=== PATIENT | male | born 1955 | race Caucasian/White ===

== ENCOUNTER 2021-09-03 15:30 | Outpatient (CLI) | payer MEDICARE, OTHER ==
[2021-09-03 17:43] LABS: Hemoglobin 15.3 g/dL (13.5-17.5); Mean Corpuscular HGB CONC 34.9 g/dL (32.0-36.0); Mean Corpuscular Hemoglobin 30.6 pg (27.0-33.0); Mean Corpuscular Volume 87.8 fl (81.2-95.1); Mean Platelet Volume 10.6 fl (7.4-10.4); Platelet Count 154 10x3/uL (150-450); RBC Distribution Width 12.5 % (11.5-14.5); White Blood Cell (WBC) Count 6.4 10x3/uL (3.5-10.5)
[2021-09-03 17:46] LABS: PTT 27.9 sec (22.0-33.0); Prothrombin Time 11.4 sec (9.5-12.1)
[2021-09-03 17:47] LABS: Anion Gap 10 mmol/L (10-20); BUN (Urea Nitrogen) 22 mg/dL (8.4-25.7); Calc. Creatinine Clearance 0 mL/min (70-130); Calcium 8.8 mg/dL (7.8-10.44); Carbon Dioxide 28 mmol/L (23-31); Chloride 105 mmol/L (98-107); Glucose 85 mg/dL (80-115); Sodium 139 mmol/L (136-145)
[2021-09-04 18:37] LABS: SARS-CoV-2 PCR by NAA Not Detected (NotDetected)
== END 2021-09-03 15:31 | disposition home or self-care (01) ==
LOC: LABBT 15:30
PROVIDERS: ATTEND Surgery
DX: Z01.818 Encounter for other preprocedural examination (principal); M48.062 Spinal stenosis, lumbar region with neurogenic claudication; M51.26 Other intervertebral disc displacement, lumbar region; Z20.822 Contact with and (suspected) exposure to COVID-19
CPT/HCPCS: 80048; 85027; 85610; 85730; U0003; U0005; 93005; 93010

== ENCOUNTER 2021-09-06 06:00 | Observation (INO) | payer MEDICARE, OTHER ==
[2021-09-03 10:05] VITALS: BMI 29.7
[2021-09-06] MEDS ORDERED: Levofloxacin 500 mg/D5W 100 ml Premix Bag ONE (06:34)
[2021-09-06] MEDS ORDERED: Fentanyl 250 MCG/5 ML VIAL ONE (06:35)
[2021-09-06] MEDS ORDERED: Thrombin 5000 UNITS/5 ML VIAL ONE (07:05)
[2021-09-06] MEDS ORDERED: Clindamycin/D5W 900 mg/50 ml Premix Bag ONE (07:20)
[2021-09-06] MEDS ORDERED: Lidocaine 2% Jelly 5 ML TUBE ONE (07:26)
[2021-09-06] MEDS ORDERED: PROPOFOL 200 MG/20 ML VIAL ONE (07:38)
[2021-09-06] MEDS ORDERED: ePHEDrine 50 MG/ML VIAL ONE (07:38)
[2021-09-06] MEDS ORDERED: Lidocaine 1% PF 5 ML VIAL ONE (07:38)
[2021-09-06] MEDS ORDERED: Ketorolac Tromethamine 30 MG/ML VIAL ONE (07:38)
[2021-09-06] MEDS ORDERED: Glycopyrrolate 0.2 MG/ML 5 ML SYRINGE ONE (07:38)
[2021-09-06] MEDS ORDERED: Ondansetron PF 4 MG/2 ML Vial ONE (07:38)
[2021-09-06] MEDS ORDERED: Dexamethasone 20 MG/5 ML VIAL ONE (07:38)
[2021-09-06] MEDS ORDERED: PHENYLEPHRINE-NS 100 MCG/ML 10 ML SYRINGE ONE (07:38)
[2021-09-06] MEDS ORDERED: Rocuronium Bromide 10 MG/ML (10ML VIAL) ONE (07:38)
[2021-09-06] MEDS ORDERED: ePHEDrine Sulfate 50 MG/10 ML VIAL ONE (08:06)
[2021-09-06] MEDS ORDERED: Acetaminophen 325 MG TAB PO PRN (08:09)
[2021-09-06] MEDS ORDERED: traMADol HCl 50 MG TAB PO PRN (08:09)
[2021-09-06] MEDS ORDERED: Acetaminophen/Codeine 30-300mg Tablet PO PRN (08:09)
[2021-09-06] MEDS ORDERED: hydrALAZINE 20 MG/ML VIAL SLOW IVP PRN (08:12)
[2021-09-06] MEDS ORDERED: tiZANidine HCl 4 MG TAB PO PRN (08:12)
[2021-09-06] MEDS ORDERED: Morphine 4 MG/ML VIAL SLOW IVP PRN (08:31)
[2021-09-06] MEDS ORDERED: Phenylephrine 10 MG/ML VIAL ONE (08:39)
[2021-09-06] MEDS ORDERED: Fentanyl 100 MCG/2 ML VIAL ONE ×2 (11:03→11:49)
[2021-09-06] MEDS ORDERED: Promethazine HCl 25 MG/ML VIAL IVPB PRN (11:05)
[2021-09-06] MEDS ORDERED: Promethazine HCl 25 MG/ML VIAL IM PRN (11:05)
[2021-09-06] MEDS ORDERED: Ondansetron HCl/PF 4 MG/2 ML Vial IVP PRN (11:05)
[2021-09-06] MEDS ORDERED: HYDROmorphone 2 MG/ML VIAL SLOW IVP PRN (11:05)
[2021-09-06] MEDS: Tamsulosin HCl 0.4 MG CAP PO SCH (13:08)
[2021-09-06] MEDS: Sodium Chloride 0.9% 1,000 ML IV SCH ×2 (13:08→22:36)
[2021-09-06] MEDS: HYDROcodone/Acetaminophen 7.5/325 mg Tablet PO PRN (13:09)
[2021-09-06] MEDS ORDERED: Clindamycin/D5W 900 MG in Premix Bag 1 BAG IVPB SCH (14:00)
[2021-09-06] MEDS: Clindamycin/D5W 900 MG in Premix Bag 1 BAG IVPB SCH (16:32)
[2021-09-06] MEDS ORDERED: Atorvastatin Calcium 20 MG TAB PO SCH (21:00)
[2021-09-07] MEDS: Clindamycin/D5W 900 MG in Premix Bag 1 BAG IVPB SCH (00:30)
[2021-09-07] MEDS: HYDROcodone/Acetaminophen 7.5/325 mg Tablet PO PRN ×2 (04:11→14:09)
[2021-09-07] MEDS: Tamsulosin HCl 0.4 MG CAP PO SCH (09:11)
[2021-09-07 12:02] VITALS: BP 112/64; TEMP 97.8
[2021-09-07] MEDS: Sodium Chloride 0.9% 1,000 ML IV SCH (13:58)
== END 2021-09-07 14:15 | disposition home or self-care (01) ==
LOC: SDC 06:00 → SURG B 12:24
PROVIDERS: ADMIT Surgery; ATTEND Surgery
PROC: 01NB0ZZ Release Lumbar Nerve, Open Approach (ICD-10-PCS; principal; 2021-09-06)
PROC: 0SB20ZZ Excision of Lumbar Vertebral Disc, Open Approach (ICD-10-PCS; 2021-09-06)
DX: M48.062 Spinal stenosis, lumbar region with neurogenic claudication (principal); M51.16 Intervertebral disc disorders with radiculopathy, lumbar region; I10 Essential (primary) hypertension; N40.0 Benign prostatic hyperplasia without lower urinary tract symptoms; J45.909 Unspecified asthma, uncomplicated; M19.90 Unspecified osteoarthritis, unspecified site; E78.5 Hyperlipidemia, unspecified; Z87.891 Personal history of nicotine dependence; Z79.1 Long term (current) use of non-steroidal anti-inflammatories (NSAID); Z79.899 Other long term (current) drug therapy; Z88.0 Allergy status to penicillin; Z88.2 Allergy status to sulfonamides
CPT/HCPCS: 63047; 63048; 63056; 76000; C1713; 96365; 96366; 96375; G0378; J1100; J1885; J1956; J2370; J2405; J2704; J3010; J3370; J3490; J7050

== ENCOUNTER 2021-12-18 10:46 | Outpatient (CLI) | payer MEDICARE, OTHER | END 2021-12-18 10:47 | disposition home or self-care (01) | LOC: TBSIIMAG 10:46 | PROVIDERS: ATTEND Surgery | DX: M48.062 Spinal stenosis, lumbar region with neurogenic claudication (principal); M47.816 Spondylosis without myelopathy or radiculopathy, lumbar region; Z98.890 Other specified postprocedural states | CPT/HCPCS: 72100; 72148 ==

== ENCOUNTER 2022-01-07 10:17 | Outpatient (CLI) | payer MEDICARE, OTHER | END 2022-01-07 10:18 | disposition home or self-care (01) | LOC: SCSCT 10:17 | PROVIDERS: ATTEND Surgery | DX: M51.16 Intervertebral disc disorders with radiculopathy, lumbar region (principal); M47.26 Other spondylosis with radiculopathy, lumbar region; Z98.890 Other specified postprocedural states | CPT/HCPCS: 72131 ==

== ENCOUNTER 2022-02-25 08:52 | Outpatient (CLI) | payer MEDICARE, OTHER | END 2022-02-25 08:53 | disposition home or self-care (01) | LOC: LABBT 08:52 | PROVIDERS: ATTEND Surgery | DX: Z01.818 Encounter for other preprocedural examination (principal); Z20.822 Contact with and (suspected) exposure to COVID-19 | CPT/HCPCS: 80048; 85027; 85610; 85730; 86850; 86900; 86901; 87811; 93005; 93010 ==

== ENCOUNTER 2022-02-28 07:29 | Inpatient (IN) | payer MEDICARE, OTHER ==
[2022-02-25 11:00] LABS: Hemoglobin 15.1 g/dL (13.5-17.5); Mean Corpuscular HGB CONC 34.7 g/dL (32.0-36.0); Mean Corpuscular Volume 86.3 fl (81.2-95.1); Mean Platelet Volume 10.8 fl (7.4-10.4); Platelet Count 158 10x3/uL (150-450); RBC Distribution Width 12.1 % (11.5-14.5); Red Blood Cell (RBC) Count 5.04 10x6/uL (4.32-5.72); White Blood Cell (WBC) Count 5.9 10x3/uL (3.5-10.5)
[2022-02-25 11:20] LABS: INR-International Normal Ratio 1.1; PTT 27.6 sec (22.0-33.0); Prothrombin Time 11.4 sec (9.5-12.1)
[2022-02-25 11:41] LABS: Anion Gap 11 mmol/L (10-20); BUN (Urea Nitrogen) 24 mg/dL (8.4-25.7); Calc. Creatinine Clearance 0 mL/min (70-130); Calcium 8.9 mg/dL (7.8-10.44); Carbon Dioxide 26 mmol/L (23-31); Chloride 106 mmol/L (98-107); Estimated GFR 95; Glucose 119 mg/dL (80-115); Potassium 3.9 mmol/L (3.5-5.1); Sodium 139 mmol/L (136-145)
[2022-02-28] MEDS ORDERED: Thrombin 5000 UNITS/5 ML VIAL ONE (08:16)
[2022-02-28] MEDS ORDERED: Levofloxacin 500 mg/D5W 100 ml Premix Bag ONE (08:43)
[2022-02-28] MEDS ORDERED: Clindamycin/D5W 900 mg/50 ml Premix Bag ONE (09:01)
[2022-02-28] MEDS ORDERED: fentaNYL Citrate/PF 100 MCG/2 ML SYRINGE ONE ×2 (09:13→12:39)
[2022-02-28] MEDS ORDERED: Midazolam HCl 2 mg/2 ml Vial ONE (09:14)
[2022-02-28] MEDS ORDERED: Ondansetron PF 4 MG/2 ML Vial ONE (09:22)
[2022-02-28] MEDS ORDERED: Dexamethasone 20 MG/5 ML VIAL ONE (09:22)
[2022-02-28] MEDS ORDERED: Vecuronium 10 MG VIAL ONE (09:22)
[2022-02-28] MEDS ORDERED: ePHEDrine 50 MG/ML VIAL ONE (09:22)
[2022-02-28] MEDS ORDERED: Phenylephrine 10 MG/ML VIAL ONE (09:22)
[2022-02-28] MEDS ORDERED: Rocuronium Bromide 10 MG/ML (10ML VIAL) ONE (09:22)
[2022-02-28] MEDS ORDERED: PROPOFOL 200 MG/20 ML VIAL ONE (09:22)
[2022-02-28] MEDS ORDERED: Metoclopramide HCl 10 MG/2 ML VIAL ONE (09:22)
[2022-02-28] MEDS ORDERED: Ketorolac Tromethamine 30 MG/ML VIAL ONE (09:22)
[2022-02-28] MEDS ORDERED: Famotidine/PF 20 mg/2ml Vial ONE (11:29)
[2022-02-28] MEDS ORDERED: SUGAMMADEX SODIUM 200 MG/2 ML VIAL ONE (12:47)
[2022-02-28] MEDS ORDERED: Promethazine HCl 25 MG/ML VIAL IM PRN (13:59)
[2022-02-28] MEDS ORDERED: Promethazine HCl 25 MG/ML VIAL IVPB PRN (13:59)
[2022-02-28] MEDS ORDERED: Ondansetron HCl/PF 4 MG/2 ML Vial IVP PRN (13:59)
[2022-02-28] MEDS ORDERED: PACU-Morphine 4MG/ML VIAL SLOW IVP PRN (13:59)
[2022-02-28] MEDS ORDERED: Acetaminophen 325 MG TAB PO PRN (14:10)
[2022-02-28] MEDS ORDERED: HYDROcodone/Acetaminophen 7.5/325 mg Tablet PO PRN (14:10)
[2022-02-28] MEDS ORDERED: Fentanyl 100 MCG/2 ML VIAL ONE ×2 (14:10→15:12)
[2022-02-28] MEDS ORDERED: Acetaminophen/Codeine 30-300mg Tablet PO PRN (14:10)
[2022-02-28] MEDS ORDERED: Morphine 2 MG/ML VIAL SLOW IVP PRN (14:10)
[2022-02-28] MEDS ORDERED: hydrALAZINE 20 MG/ML VIAL SLOW IVP PRN (14:16)
[2022-02-28 16:14] VITALS: BMI 30.2
[2022-02-28] MEDS: Clindamycin/D5W 900 MG in Premix Bag 1 BAG IVPB SCH (17:32)
[2022-02-28] MEDS: Sodium Chloride 0.9% 1,000 ML IV SCH (18:05)
[2022-02-28] MEDS ORDERED: fentaNYL Citrate/PF 2,000 MCG in Sodium Chloride 0.9% 60 ML IV PRN (18:44)
[2022-02-28] MEDS: tiZANidine HCl 4 MG TAB PO PRN (19:23)
[2022-02-28] MEDS: Tamsulosin HCl 0.4 MG CAP PO SCH (21:40)
[2022-02-28] MEDS: Dutasteride 0.5 MG CAP PO SCH (21:40)
[2022-02-28] MEDS: Amitriptyline HCl 25 MG TAB PO SCH (21:41)
[2022-02-28] MEDS: Atorvastatin Calcium 20 MG TAB PO SCH (21:41)
[2022-03-01] MEDS: Sodium Chloride 0.9% 1,000 ML IV SCH ×3 (00:45→21:53)
[2022-03-01] MEDS: Clindamycin/D5W 900 MG in Premix Bag 1 BAG IVPB SCH ×2 (02:00→09:57)
[2022-03-01] MEDS: tiZANidine HCl 4 MG TAB PO PRN ×3 (03:49→20:15)
[2022-03-01 05:25] LABS: #Lymphocytes 0.7 thou/uL (1.20-3.40); #Monocytes 0.5 thou/uL (0.11-0.59); #Neutrophils 12.8 thou/uL (1.40-6.50); %Basophils 0.1 % (0.0-1.0); %Lymphocytes 4.7 % (21.0-51.0); %Monocytes 3.4 % (0.0-10.0); %Neutrophils 91.9 % (42.0-75.0); Hemoglobin 13.2 g/dL (14.0-18.0); Mean Corpuscular HGB CONC 33.6 g/dL (32.0-36.0); Mean Corpuscular Hemoglobin 30.8 pg (27.0-31.0); Mean Corpuscular Volume 91.7 fL (78.0-98.0); Mean Platelet Volume 8.6 fL (7.4-10.4); Platelet Count 142 thou/uL (130-400); RBC Distribution Width 11.4 % (11.5-14.5); Red Blood Cell (RBC) Count 4.27 mill/uL (4.70-6.10)
[2022-03-01 05:46] LABS: Anion Gap 13 mmol/L (10-20); BUN (Urea Nitrogen) 18 mg/dL (8.4-25.7); Calc. Creatinine Clearance 132 mL/min (70-130); Calcium 8.3 mg/dL (7.8-10.44); Carbon Dioxide 22 mmol/L (23-31); Chloride 106 mmol/L (98-107); Estimated GFR 97; Glucose 194 mg/dL (80-115); Sodium 137 mmol/L (136-145)
[2022-03-01] MEDS: Stress 600 With Zinc 1 TAB PO SCH (09:57)
[2022-03-01] MEDS: Multivit, Therapeutic 1 TAB PO SCH (09:57)
[2022-03-01] MEDS ORDERED: Morphine 2 MG/ML VIAL SLOW IVP PRN (10:12)
[2022-03-01] MEDS ORDERED: Acetaminophen/Codeine 30-300mg Tablet PO PRN (10:12)
[2022-03-01] MEDS ORDERED: HYDROcodone/Acetaminophen 5/325 mg Tablet PO PRN (10:12)
[2022-03-01] MEDS: Tamsulosin HCl 0.4 MG CAP PO SCH (20:14)
[2022-03-01] MEDS: Atorvastatin Calcium 20 MG TAB PO SCH (20:14)
[2022-03-01] MEDS: Amitriptyline HCl 25 MG TAB PO SCH (20:14)
[2022-03-01] MEDS: Dutasteride 0.5 MG CAP PO SCH (20:14)
[2022-03-01] MEDS: Ketorolac Tromethamine 30 MG/ML VIAL IVP PRN (20:23)
[2022-03-01] MEDS ORDERED: Diazepam 5 MG TAB PO SCH (23:30)
[2022-03-02] MEDS: HYDROcodone/Acetaminophen 5/325 mg Tablet PO PRN ×4 (06:42→21:09)
[2022-03-02] MEDS: Stress 600 With Zinc 1 TAB PO SCH (09:24)
[2022-03-02] MEDS: Multivit, Therapeutic 1 TAB PO SCH (09:24)
[2022-03-02] MEDS: Ketorolac Tromethamine 30 MG/ML VIAL IVP PRN (09:28)
[2022-03-02] MEDS ORDERED: Magnesium Citrate 300 ML BOT PO PRN (10:47)
[2022-03-02] MEDS ORDERED: Bisacodyl 10 MG SUPP PR PRN (10:47)
[2022-03-02] MEDS ORDERED: Polyethylene Glycol 3350 17 GM Packet PO PRN (10:53)
[2022-03-02] MEDS: Sodium Chloride 0.9% 1,000 ML IV SCH (18:51)
[2022-03-02] MEDS ORDERED: Diazepam 5 MG TAB PO PRN (19:05)
[2022-03-02] MEDS: Tamsulosin HCl 0.4 MG CAP PO SCH (20:05)
[2022-03-02] MEDS: Dutasteride 0.5 MG CAP PO SCH (20:05)
[2022-03-02] MEDS: Atorvastatin Calcium 20 MG TAB PO SCH (20:05)
[2022-03-02] MEDS: Amitriptyline HCl 25 MG TAB PO SCH (20:05)
[2022-03-02] MEDS: Docusate 100 MG CAP PO SCH (20:05)
[2022-03-03] MEDS: HYDROcodone/Acetaminophen 5/325 mg Tablet PO PRN ×2 (07:09→10:39)
[2022-03-03] MEDS: Multivit, Therapeutic 1 TAB PO SCH (08:26)
[2022-03-03] MEDS: Stress 600 With Zinc 1 TAB PO SCH (08:26)
[2022-03-03] MEDS: Docusate 100 MG CAP PO SCH (08:26)
[2022-03-03 08:51] VITALS: BP 103/63; TEMP 97.9
[2022-03-03] MEDS: tiZANidine HCl 4 MG TAB PO PRN (12:37)
== END 2022-03-03 14:46 | disposition home or self-care (01) | DRG 455 ==
LOC: SDC 07:29 → MSONC 14:04 → SDC 19:48 → OBSVTOIN 03-01 16:08
PROVIDERS: ADMIT Surgery; ATTEND Surgery
PROC: 0SG30AJ Fusion of Lumbosacral Joint with Interbody Fusion Device, Posterior Approach, Anterior Column, Open Approach (ICD-10-PCS; principal; 2022-02-28)
PROC: 0SG3071 Fusion of Lumbosacral Joint with Autologous Tissue Substitute, Posterior Approach, Posterior Column, Open Approach (ICD-10-PCS; 2022-02-28)
PROC: 0SB40ZZ Excision of Lumbosacral Disc, Open Approach (ICD-10-PCS; 2022-02-28)
PROC: 01NB0ZZ Release Lumbar Nerve, Open Approach (ICD-10-PCS; 2022-02-28)
PROC: 01NR0ZZ Release Sacral Nerve, Open Approach (ICD-10-PCS; 2022-02-28)
PROC: 3E0U0GB Introduction of Recombinant Bone Morphogenetic Protein into Joints, Open Approach (ICD-10-PCS; 2022-02-28)
DX: M48.061 Spinal stenosis, lumbar region without neurogenic claudication (principal); M51.17 Intervertebral disc disorders with radiculopathy, lumbosacral region; Z20.822 Contact with and (suspected) exposure to COVID-19; Z88.1 Allergy status to other antibiotic agents; Z88.0 Allergy status to penicillin; Z88.2 Allergy status to sulfonamides
CPT/HCPCS: 36415; 76000; 80048; 85025; 85027; 85610; 85730; 86850; 86900; 86901; 87811; 93970; 96365; 96375; C1713; C1768; C1776; G0378; J1100; J1885; J1956; J2250; J2270; J2370; J2405; J2704; J2765; J3010; J3370; J3490; J7050; S0028

== ENCOUNTER 2023-07-01 17:00 | Outpatient (CLI) | payer MEDICARE, OTHER | END 2023-07-01 17:01 | disposition home or self-care (01) | LOC: SLEEPLAB 17:00 | PROVIDERS: ATTEND Family Medicine | DX: G47.33 Obstructive sleep apnea (adult) (pediatric) (principal); R53.83 Other fatigue; R06.83 Snoring | CPT/HCPCS: 95810 ==

== ENCOUNTER 2023-07-27 17:00 | Outpatient (CLI) | payer MEDICARE, OTHER | END 2023-07-27 17:01 | disposition home or self-care (01) | LOC: SLEEPLAB 17:00 | PROVIDERS: ATTEND Family Medicine | DX: G47.33 Obstructive sleep apnea (adult) (pediatric) (principal); R53.83 Other fatigue; R40.0 Somnolence; R06.83 Snoring | CPT/HCPCS: 95811 ==